=== PATIENT | male | born 1975 | race Caucasian/White ===

== ENCOUNTER 2016-12-12 17:02 | Emergency (ER) | payer OTHER ==
[2016-12-12] MEDS ORDERED: TORADOL IM ONE (20:21)
--- NOTE | 2016-12-12 20:26 | Emergency Department Report ---
ED ENT HPI - General Chief complaint: Sore Throat Stated complaint: SORE THROAT/ Time Seen by Provider: 12/12/16 20:15 Source: patient Mode of arrival: Ambulatory Limitations: No Limitations - History of Present Illness Initial comments: PT c/o sore throat x 3 days. PT states the pain is worse with eating solid food. PT states he has been drinking fluids and eating soups. PT states he has taken an Aleve without relief. PT states he had some relief with Dayquil today. No relief with throat lozenges. PT denies sick contacts. MD complaint: sore throat Onset/Timin -: Gradual, days(s) Location: throat Severity: severe Severity scale (0 -10): 8 Quality: sharp Consistency: constant Improves with: other medication Worsens with: swallowing, eating Associated Symptoms: fever (subjective ), sore throat. denies: cough - Related Data Previous Rx's Medication Instructions Recorded Last Taken Type Ibuprofen [Motrin] 600 mg PO Q8H PRN #15 tablet 12/12/16 Unknown Rx traMADol [Ultram] 50 mg PO Q6HR PRN #12 tablet 12/12/16 Unknown Rx Allergies Allergy/AdvReac Type Severity Reaction Status Date / Time No Known Allergies Allergy Unverified 12/12/16 17:57 ED Dental HPI - General Chief complaint: Sore Throat Stated complaint: SORE THROAT/ Time Seen by Provider: 12/12/16 20:15 Source: patient Mode of arrival: Ambulatory Limitations: No Limitations - Related Data Previous Rx's Medication Instructions Recorded Last Taken Type Ibuprofen [Motrin] 600 mg PO Q8H PRN #15 tablet 12/12/16 Unknown Rx traMADol [Ultram] 50 mg PO Q6HR PRN #12 tablet 12/12/16 Unknown Rx Allergies Allergy/AdvReac Type Severity Reaction Status Date / Time No Known Allergies Allergy Unverified 12/12/16 17:57 ED Review of Systems ROS: Stated complaint: SORE THROAT/ Other details as noted in HPI Comment: All other systems reviewed and negative Constitutional: fever (subjective ) ENT: throat pain. denies: congestion Respiratory: denies: cough Gastrointestinal: denies: vomiting Neurological: headache ED Past Medical Hx - Social History Smoking Status: Current Every Day Smoker Substance Use Type: Alcohol, Marijuana, Other - Medications Home Medications: Home Medications Medication Instructions Recorded Confirmed Last Taken Type Ibuprofen [Motrin] 600 mg PO Q8H PRN #15 tablet 12/12/16 Unknown Rx traMADol [Ultram] 50 mg PO Q6HR PRN #12 tablet 12/12/16 Unknown Rx ED Physical Exam - General Limitations: No Limitations General appearance: in no apparent distress - Head Head exam: Present: atraumatic, normocephalic - Eye Eye exam: Present: normal appearance. Absent: conjunctival injection - ENT ENT exam: Present: normal exam, mucous membranes moist, TM's normal bilaterally , normal external ear exam - Expanded ENT Exam Expanded Mouth exam: Present: tongue normal. Absent: drooling, trismus Throat exam: Positive: tonsillar erythema (mildy ), tonsillomegaly (mild). Negative: tonsillar exudate, R peritonsillar mass, L peritonsillar mass - Neck Neck exam: Present: normal inspection, full ROM. Absent: tenderness, lymphadenopathy - Respiratory Respiratory exam: Present: normal lung sounds bilaterally. Absent: respiratory distress, wheezes - Cardiovascular Cardiovascular Exam: Present: regular rate, normal rhythm, normal heart sounds - Extremities Exam Extremities exam: Present: normal inspection, full ROM - Back Exam Back exam: Present: normal inspection, full ROM - Neurological Exam Neurological exam: Present: alert, oriented X3 - Psychiatric Psychiatric exam: Present: normal affect, normal mood - Skin Skin exam: Present: warm, dry, intact ED Course Vital Signs 12/12/16 12/12/16 17:58 21:20 Temperature 98.1 F Pulse Rate 73 77 Respiratory 18 18 Rate Blood Pressure 141/101 Blood Pressure 166/101 [Right] O2 Sat by Pulse 98 100 Oximetry - Reevaluation(s) Reevaluation #1: 12/12/16 20:29 PT aware of plan of care. Reevaluation #2: 12/12/16 21:00 Pt aware of lab results. PT has no questions at this time. - Pulse Oximetry Interpretation Digit-Finger Initial Pulse Oximetry Readin Actions Taken: none ED Medical Decision Making - Differential Diagnosis strep pharyngitis, viral uri Critical care attestation.: If time is entered above; I have spent that time in minutes in the direct care of this critically ill patient, excluding procedure time. ED Disposition Clinical Impression: Pharyngitis Qualifiers: Pharyngitis/tonsillitis etiology: unspecified etiology Qualified Code(s): J02.9 - Acute pharyngitis, unspecified Disposition: DISCHARGED TO HOME OR SELFCARE Is pt being admited?: No Does the pt Need Aspirin: No Condition: Stable Instructions: Pharyngitis (ED) Additional Instructions: Rest Increase Fluids No driving or ETOH if you need to take Ultram for your pain As we discussed - recheck your bp on follow up Prescriptions: Ibuprofen [Motrin] 600 mg PO Q8H PRN #15 tablet PRN Reason: Pain traMADol [Ultram] 50 mg PO Q6HR PRN #12 tablet PRN Reason: Pain Referrals: PRIMARY CAREMD [Primary Care Provider] - 3-5 Days SHARON LEWIS MD [Referring] - 3-5 Days Forms: Work/School Release Form(ED) Time of Disposition: 21:01
[2016-12-12 21:21] VITALS: BP 166/101
== END 2016-12-12 21:19 | disposition home or self-care (01) ==
LOC: ED 17:02
DX: J02.9 Acute pharyngitis, unspecified (principal); F17.200 Nicotine dependence, unspecified, uncomplicated; F12.90 Cannabis use, unspecified, uncomplicated
CPT/HCPCS: 87116; 87430; 96372; 99282; J1885